=== PATIENT | female | born 1980 | race Hispanic/Latino ===

== ENCOUNTER 2017-08-26 02:39 | Emergency (ER) | payer OTHER ==
[2017-08-26] MEDS ORDERED: Proparacaine 0.5% Opth 15 ML BOT ONE (03:19)
[2017-08-26] MEDS ORDERED: Fluorescein Opthalmic Strip ONE (03:19)
[2017-08-26] MEDS ORDERED: HYDROcodone/Acetaminophen 10/325 mg Tablet ONE (03:48)
== END 2017-08-26 04:08 | disposition home or self-care (01) ==
LOC: ERS 02:39
DX: S05.8X2A Other injuries of left eye and orbit, initial encounter (principal); G43.909 Migraine, unspecified, not intractable, without status migrainosus; F32.9 Major depressive disorder, single episode, unspecified; Z79.899 Other long term (current) drug therapy; W45.0XXA Nail entering through skin, initial encounter
CPT/HCPCS: 99283

== ENCOUNTER 2017-10-10 21:58 | Emergency (ER) | payer OTHER ==
[2017-10-10] MEDS ORDERED: Ibuprofen 800 MG TAB ONE (22:21)
[2017-10-10] MEDS ORDERED: Adacel (T-DAP) 0.5 ML VIAL ONE (22:21)
== END 2017-10-10 22:40 | disposition home or self-care (01) ==
LOC: ERS 21:58
DX: S01.01XA Laceration without foreign body of scalp, initial encounter (principal); G43.909 Migraine, unspecified, not intractable, without status migrainosus; F32.9 Major depressive disorder, single episode, unspecified; Z79.899 Other long term (current) drug therapy; Z23 Encounter for immunization; Z86.711 Personal history of pulmonary embolism; W22.8XXA Striking against or struck by other objects, initial encounter
CPT/HCPCS: 12001; 90471; 90715

== ENCOUNTER 2020-06-24 12:16 | Outpatient (CLI) | payer BC ==
[2020-06-24] MEDS ORDERED: Magnevist 469MG/ML 20 ML VIAL ONE (12:38)
== END 2020-06-24 12:17 | disposition home or self-care (01) ==
LOC: BICMRI 12:16
PROVIDERS: ATTEND Psychiatry & Neurology Neurology
DX: G95.9 Disease of spinal cord, unspecified (principal); M48.02 Spinal stenosis, cervical region
CPT/HCPCS: 70553; 72141; 72146; A9579

== ENCOUNTER 2020-09-01 07:06 | Day surgery (SDC) | payer BC ==
[2020-09-01 07:55] VITALS: BP 115/73; TEMP 98.2
[2020-09-01 07:57] VITALS: BMI 31.2
[2020-09-01 10:36] LABS: CSF, Glucose 56 mg/dl (40-70); CSF, Protein 24 mg/dL (15-40)
[2020-09-01 10:57] LABS: CSF Source CSF; Clarity Clear (Clear); Tube # 4
[2020-09-01 13:27] LABS: Tube # 2; Unspun CSF Color COLORLESS (Colorless)
[2020-09-01 13:28] LABS: Color Of CSF Supernatant COLORLESS (Colorless)
[2020-09-06 16:37] LABS: Albumin 3.3 g/dL (2.9-4.4); Alpha 1 0.2 g/dL (0.0-0.4); Alpha 2 0.7 g/dL (0.4-1.0); Beta 1.4 g/dL (0.7-1.3); Gamma 1.1 g/dL (0.4-1.8); Globulin, Total 3.4 g/dL (2.2-3.9); M-Spike Not Observed g/dL (Not Observed)
== END 2020-09-01 09:30 | disposition home or self-care (01) ==
LOC: RAD 07:06
PROVIDERS: ATTEND Psychiatry & Neurology Neurology
PROC: 00JU3ZZ Inspection of Spinal Canal, Percutaneous Approach (ICD-10-PCS; principal; 2020-09-01)
DX: G62.9 Polyneuropathy, unspecified (principal); R73.03 Prediabetes; G43.909 Migraine, unspecified, not intractable, without status migrainosus; Z79.84 Long term (current) use of oral hypoglycemic drugs; Z79.899 Other long term (current) drug therapy
CPT/HCPCS: 62270; 82945; 83916; 84157; 84165; 89051